=== PATIENT | female | born 1950 | race Caucasian/White ===

== ENCOUNTER 2017-02-11 12:43 | Emergency (ER) | payer MEDICARE, BC, OTHER ==
[~2017-02-11] VITALS: Ht 149.9 cm; Wt 75.0 kg
[~2017-02-11 12:43] MED LIST: ASPIRIN 81M81 MG/TA2 PO; CARAFATE 1GM1 G PO; COLESTID 1GM1 G PO; NEXIUM 40MG40 MG PO; PEPCID 20MG TAB20 MG PO; PHENERGAN 25 TA25 MG PO; SYNTHROID0.125 MG/T PO; TOPAMAX50 MG PO; TUMS500 MG PO; VITAMIN D2000 I1 PO; XANAX .25M0.25 MG/TA PO; XANAX 0.5MG0.5 MG PO; ZANTAC 150MG T150 MG PO; ZOLOFT 100MG100 MG PO
[2017-02-11 12:53] VITALS: TEMP 98.1
[2017-02-11] MEDS ORDERED: ASPIRIN 81M81 MG/TA2 PO (13:05)
[2017-02-11] MEDS ORDERED: WELLBUTRIN XL300 M1 PO (13:05)
[2017-02-11] MEDS ORDERED: ZYRTEC 10MG10 MG PO (13:05)
[2017-02-11] MEDS ORDERED: DESYREL 50MG50 MG PO (13:06)
[2017-02-11] MEDS ORDERED: VITAMIN D31000 IU PO (13:06)
[2017-02-11] MEDS ORDERED: IMODIUM 2MG CAPS2 MG PO (13:07)
[2017-02-11] MEDS ORDERED: CALCIUM CARB500 MG PO (13:07)
[2017-02-11] MEDS ORDERED: VITAMIN B COMPL1 SGL PO (13:07)
[2017-02-11] MEDS ORDERED: FLONASEALLERGY NS (13:07)
[2017-02-11] MEDS ORDERED: ATIVAN 0.50.5 MG/TAB PO (13:08)
[2017-02-11] MEDS ORDERED: PREVALITE4 GM/5.5 G PO (13:08)
[2017-02-11] MEDS ORDERED: ROBAXIN 50500 MG/TAB PO (13:09)
[2017-02-11] MEDS ORDERED: ULTRAM 50MG TAB50 MG PO (13:09)
[2017-02-11] MEDS ORDERED: ZOFRAN8 MG PO (13:09)
[2017-02-11 13:42] LABS: COLLECTION METHOD CLEAN CATCH
[2017-02-11 13:50] LABS: PH 6 (5-8); SQUAMOUS EPITHELIAL None Seen /hpf; URINE APPEARANCE Clear; URINE BACTERIA None Seen /hpf; URINE BILIRUBIN Negative (NEGATIVE); URINE BLOOD 1+ (NEGATIVE); URINE COLOR Straw; URINE GLUCOSE Negative (NEGATIVE); URINE KETONE Negative (NEGATIVE); URINE LEUKOCYTE ESTERASE Negative (NEGATIVE); URINE PROTEIN(semi-quant) Negative (NEGATIVE); URINE RBC None Seen /hpf; URINE UROBILINOGEN Negative (NEGATIVE); URINE WBC 0-2 /hpf
[2017-02-11 13:51] LABS: BASO % 0.6 % (0.0-2.0); EOS # 0.1 (0.0-0.7); GRAN # 4.4 (1.4-6.5); GRAN % 65.4 % (42.2-75.2); HEMATOCRIT 40.7 % (37.0-47.0); HEMOGLOBIN 13.5 g/dl (12.5-16.0); LYMPH # 1.7 (1.2-3.4); LYMPH % 25.6 % (20.0-51.0); MEAN CELL VOLUME 92 fl (80.0-100.0); MEAN CORPUSCULAR HEMOGLOBIN 30 pg (27.0-31.0); MEAN CORPUSCULAR HGB CONC 33 g/dl (33.0-37.0); MEAN PLATELET VOLUME 10.3 fl (7.4-10.4); MONO # 0.5 (0.1-0.6); MONO % 7.3 % (1.7-9.3); PLATELET COUNT 237 K/mm3 (130-400); RED BLOOD COUNT 4.45 M/mm3 (4.10-5.30); WHITE BLOOD COUNT 6.7 K/mm3 (4.8-10.8)
[2017-02-11 13:54] LABS: ADJUSTED CALCIUM 9.6 mg/dL (8.4-10.2); ALBUMIN 4.7 gm/dL (3.5-5.0); BILIRUBIN,TOTAL 0.5 mg/dL (0.0-1.0); CALCIUM 10.2 mg/dL (8.4-10.2); CREATININE, serum 1.06 mg/dL (0.52-1.25); POTASSIUM 4.1 mmol/L (3.4-5.0); TOTAL PROTEIN 7.6 gm/dL (6.4-8.2)
[2017-02-11 14:55] VITALS: BP 168/85; PULSE 66
== END 2017-02-11 14:56 | disposition home or self-care (01) ==
LOC: COL.ER 12:43
PROVIDERS: Physician Assistant Medical
DX: R10.13 Epigastric pain (principal); G43.909 Migraine, unspecified, not intractable, without status migrainosus; K21.9 Gastro-esophageal reflux disease without esophagitis; Z90.49 Acquired absence of other specified parts of digestive tract; Z90.710 Acquired absence of both cervix and uterus; Z98.51 Tubal ligation status; Z79.82 Long term (current) use of aspirin
CPT/HCPCS: J2405

== ENCOUNTER → 2017-06-06 | Outpatient (CLI) | payer MEDICARE, BC, OTHER ==
[~2017-06-06] MED LIST changes: +ATIVAN 0.50.5 MG/TAB PO; +CALCIUM CARB500 MG PO; +DESYREL 50MG50 MG PO; +FLONASEALLERGY NS; +IMODIUM 2MG CAPS2 MG PO; +PREVALITE4 GM/5.5 G PO; +ROBAXIN 50500 MG/TAB PO; +ULTRAM 50MG TAB50 MG PO; +VITAMIN B COMPL1 SGL PO; +VITAMIN D31000 IU PO; +WELLBUTRIN XL300 M1 PO; +ZOFRAN8 MG PO; +ZYRTEC 10MG10 MG PO
== END ==
LOC: COL.RAD 12:31
DX: N13.0 Hydronephrosis with ureteropelvic junction obstruction (principal); R94.4 Abnormal results of kidney function studies
CPT/HCPCS: A9562; J1940

== ENCOUNTER 2018-01-06 08:33 | Emergency (ER) | payer MEDICARE, BC, OTHER ==
[~2018-01-06] VITALS: Ht 149.9 cm; Wt 73.2 kg
[~2018-01-06 08:33] MED LIST changes: +GLUCOSAMINE 1000 PO; +LIDODERM 5% PATC1 EA TP; +MULTIPLE VITAMI1 CAP PO; +VOLTAREN GEL 1%1 TU TP; +[UNRECOGNIZED DRUG - OTHER] PO
[2018-01-06 08:39] VITALS: TEMP 97.9
[2018-01-06 09:49] LABS: BASO % 0.7 % (0.0-2.0); EOS # 0.1 (0.0-0.7); EOS % 0.9 % (0-4.0); GRAN # 3.7 (1.4-6.5); GRAN % 66.6 % (42.2-75.2); HEMATOCRIT 40.1 % (37.0-47.0); HEMOGLOBIN 13.1 g/dl (12.5-16.0); LYMPH # 1.2 (1.2-3.4); LYMPH % 22.5 % (20.0-51.0); MEAN CELL VOLUME 96 fl (80.0-100.0); MEAN CORPUSCULAR HEMOGLOBIN 31 pg (27.0-31.0); MEAN CORPUSCULAR HGB CONC 33 g/dl (33.0-37.0); MEAN PLATELET VOLUME 10.5 fl (7.4-10.4); MONO # 0.5 (0.1-0.6); MONO % 9.1 % (1.7-9.3); PLATELET COUNT 243 K/mm3 (130-400); RED BLOOD COUNT 4.19 M/mm3 (4.10-5.30); REDCELL DISTRIBUTION WIDTH-CV 12.3 % (11.5-14.5)
[2018-01-06 10:45] LABS: ALANINE AMINOTRANSFERASE 28 U/L (9-52); ALBUMIN 3.8 gm/dL (3.5-5.0); ALKALINE PHOSPHATASE 49 U/L (50-136); ANION GAP 8 mmol/L (7-16); AST,SGOT 22 U/L (15-37); BILIRUBIN,TOTAL 0.6 mg/dL (0.0-1.0); BLOOD UREA NITROGEN 16 mg/dL (7-17); C-REACTIVE PROTEIN 0.6 mg/dL (0.0-0.9); CALCIUM 9.4 mg/dL (8.4-10.2); CARBON DIOXIDE 29 mmol/L (22-30); CHLORIDE 101 mmol/L (98-107); CREATININE, serum 1.08 mg/dL (0.52-1.25); GLUCOSE 83 mg/dL (74-106); POTASSIUM 4.5 mmol/L (3.4-5.0); SODIUM 138 mmol/L (137-145); TOTAL PROTEIN 6.8 gm/dL (6.4-8.2)
[2018-01-06 10:56] LABS: TROPONIN-I < 0.012 ng/mL (0.000-0.034)
[2018-01-06 11:03] LABS: COLLECTION METHOD CLEAN CATCH
[2018-01-06 11:10] LABS: MUCOUS Present /lpf; PH 5 (5-8); SQUAMOUS EPITHELIAL None Seen /hpf; URINE APPEARANCE Clear; URINE BACTERIA None Seen /hpf; URINE BILIRUBIN Negative (NEGATIVE); URINE BLOOD Negative (NEGATIVE); URINE COLOR Yellow; URINE GLUCOSE Negative (NEGATIVE); URINE KETONE Trace (NEGATIVE); URINE LEUKOCYTE ESTERASE Negative (NEGATIVE); URINE NITRATE Negative (NEGATIVE); URINE PROTEIN(semi-quant) Negative (NEGATIVE); URINE RBC 0-2 /hpf; URINE UROBILINOGEN Negative (NEGATIVE); URINE WBC 0-2 /hpf
[2018-01-06] MEDS ORDERED: ANTIVERT 25MG25 MG PO (11:40)
[2018-01-06 12:09] VITALS: BP 119/69; PULSE 82
== END 2018-01-06 12:13 | disposition home or self-care (01) ==
LOC: COL.ER 08:33
PROVIDERS: Emergency Medicine
DX: G43.909 Migraine, unspecified, not intractable, without status migrainosus (principal); F32.9 Major depressive disorder, single episode, unspecified; R42 Dizziness and giddiness; Z90.89 Acquired absence of other organs; Z90.49 Acquired absence of other specified parts of digestive tract; Z90.710 Acquired absence of both cervix and uterus; Z79.82 Long term (current) use of aspirin; Z79.51 Long term (current) use of inhaled steroids
CPT/HCPCS: J1200; J1885; J2550; J2765; J7030

== ENCOUNTER 2018-04-09 12:30 | Emergency (ER) | payer MEDICARE, BC, OTHER ==
[~2018-04-09] VITALS: Ht 149.9 cm; Wt 75.5 kg
[~2018-04-09 12:30] MED LIST changes: +ANTIVERT 25MG25 MG PO
[2018-04-09 12:34] VITALS: TEMP 98
[2018-04-09 13:14] LABS: BASO % 0.5 % (0.0-2.0); EOS # 0.1 (0.0-0.7); EOS % 0.7 % (0-4.0); GRAN # 5.7 (1.4-6.5); GRAN % 70.1 % (42.2-75.2); HEMATOCRIT 41.9 % (37.0-47.0); HEMOGLOBIN 13.6 g/dl (12.5-16.0); LYMPH # 1.7 (1.2-3.4); LYMPH % 21.3 % (20.0-51.0); MEAN CELL VOLUME 93 fl (80.0-100.0); MEAN CORPUSCULAR HEMOGLOBIN 30 pg (27.0-31.0); MEAN CORPUSCULAR HGB CONC 33 g/dl (33.0-37.0); MEAN PLATELET VOLUME 10.1 fl (7.4-10.4); MONO # 0.6 (0.1-0.6); MONO % 7.2 % (1.7-9.3); PLATELET COUNT 276 K/mm3 (130-400); RED BLOOD COUNT 4.52 M/mm3 (4.10-5.30); REDCELL DISTRIBUTION WIDTH-CV 12.6 % (11.5-14.5)
[2018-04-09 13:30] LABS: ALANINE AMINOTRANSFERASE 22 U/L (9-52); ALBUMIN 4.1 gm/dL (3.5-5.0); ALKALINE PHOSPHATASE 55 U/L (50-136); ANION GAP 7 mmol/L (7-16); AST,SGOT 28 U/L (15-37); BILIRUBIN,TOTAL 0.3 mg/dL (0.0-1.0); BLOOD UREA NITROGEN 24 mg/dL (7-17); CALCIUM 10.1 mg/dL (8.4-10.2); CARBON DIOXIDE 23 mmol/L (22-30); CHLORIDE 105 mmol/L (98-107); CREATININE, serum 1.15 mg/dL (0.52-1.25); GLUCOSE 97 mg/dL (74-106); LIPASE 507 U/L (23-300); POTASSIUM 4.9 mmol/L (3.4-5.0); SODIUM 135 mmol/L (137-145); TOTAL PROTEIN 7.3 gm/dL (6.4-8.2)
[2018-04-09 13:31] LABS: C-REACTIVE PROTEIN < 0.5 mg/dL (0.0-0.9)
[2018-04-09 16:58] LABS: COLLECTION METHOD CLEAN CATCH
[2018-04-09 17:12] LABS: MUCOUS Present /lpf; PH 5 (5-8); SQUAMOUS EPITHELIAL None Seen /hpf; URINE APPEARANCE Clear; URINE BACTERIA None Seen /hpf; URINE BILIRUBIN Negative (NEGATIVE); URINE BLOOD Negative (NEGATIVE); URINE COLOR Yellow; URINE GLUCOSE Negative (NEGATIVE); URINE KETONE Negative (NEGATIVE); URINE LEUKOCYTE ESTERASE 1+ (NEGATIVE); URINE NITRATE Negative (NEGATIVE); URINE PROTEIN(semi-quant) Negative (NEGATIVE); URINE UROBILINOGEN Negative (NEGATIVE)
[2018-04-09] MEDS ORDERED: PHENERGAN 25 TA25 MG PO (17:14)
[2018-04-09 17:26] VITALS: BP 148/83; PULSE 86
== END 2018-04-09 17:29 | disposition home or self-care (01) ==
LOC: COL.ER 12:30
PROVIDERS: Nurse Practitioner
DX: K52.9 Noninfective gastroenteritis and colitis, unspecified (principal); F32.9 Major depressive disorder, single episode, unspecified; Z79.82 Long term (current) use of aspirin; G43.909 Migraine, unspecified, not intractable, without status migrainosus; Z90.89 Acquired absence of other organs; Z90.710 Acquired absence of both cervix and uterus; Z98.51 Tubal ligation status
CPT/HCPCS: J1170; J2405; J2550; J7030; Q9967

== ENCOUNTER 2018-12-13 09:48 | Emergency (ER) | payer MEDICARE, BC, OTHER ==
[~2018-12-13] VITALS: Ht 149.9 cm; Wt 77.3 kg
[2018-12-13 09:54] VITALS: TEMP 99.3
[2018-12-13] MEDS ORDERED: NIRAVAM0.5 MG PO (10:13)
[2018-12-13 11:52] VITALS: BP 143/76; PULSE 91
== END 2018-12-13 11:53 | disposition home or self-care (01) ==
LOC: COL.ER 09:48
DX: G43.909 Migraine, unspecified, not intractable, without status migrainosus (principal); F32.9 Major depressive disorder, single episode, unspecified; N18.3 Chronic kidney disease, stage 3 (moderate); Z79.82 Long term (current) use of aspirin; Z79.51 Long term (current) use of inhaled steroids; Z90.89 Acquired absence of other organs
CPT/HCPCS: J1200; J2765; J7030

== ENCOUNTER 2018-12-17 12:31 | Emergency (ER) | payer MEDICARE, BC, OTHER ==
[~2018-12-17] VITALS: Ht 149.9 cm; Wt 79.5 kg
[~2018-12-17 12:31] MED LIST changes: +NIRAVAM0.5 MG PO
[2018-12-17 12:34] VITALS: TEMP 98.2
[2018-12-17 13:06] LABS: BASO % 0.4 % (0.0-2.0); EOS # 0.1 (0.0-0.7); EOS % 0.5 % (0-4.0); GRAN # 7.3 (1.4-6.5); GRAN % 74.7 % (42.2-75.2); HEMATOCRIT 42.1 % (37.0-47.0); HEMOGLOBIN 14.1 g/dl (12.5-16.0); LYMPH # 1.7 (1.2-3.4); LYMPH % 17.5 % (20.0-51.0); MEAN CELL VOLUME 93 fl (80.0-100.0); MEAN CORPUSCULAR HEMOGLOBIN 31 pg (27.0-31.0); MEAN CORPUSCULAR HGB CONC 34 g/dl (33.0-37.0); MEAN PLATELET VOLUME 9.5 fl (7.4-10.4); MONO # 0.6 (0.1-0.6); MONO % 6.6 % (1.7-9.3); PLATELET COUNT 307 K/mm3 (130-400); RED BLOOD COUNT 4.53 M/mm3 (4.10-5.30); REDCELL DISTRIBUTION WIDTH-CV 13.2 % (11.5-14.5)
[2018-12-17 13:09] LABS: INR 0.9 (0.8-3.0)
[2018-12-17 13:13] LABS: ALANINE AMINOTRANSFERASE 13 U/L (9-52); ALBUMIN 4.4 gm/dL (3.5-5.0); ALKALINE PHOSPHATASE 62 U/L (50-136); ANION GAP 8 mmol/L (7-16); AST,SGOT 29 U/L (15-37); BILIRUBIN,TOTAL 0.4 mg/dL (0.0-1.0); BLOOD UREA NITROGEN 21 mg/dL (7-17); CALCIUM 10.8 mg/dL (8.4-10.2); CARBON DIOXIDE 26 mmol/L (22-30); CHLORIDE 103 mmol/L (98-107); CREATININE, serum 1.32 (0.52-1.25); GLUCOSE 87 mg/dL (74-106); LIPASE 63 U/L (23-300); POTASSIUM 4.4 mmol/L (3.4-5.0); SODIUM 137 mmol/L (137-145); TOTAL PROTEIN 7.4 gm/dL (6.4-8.2)
[2018-12-17 13:26] LABS: TROPONIN-I < 0.012 ng/mL (0.000-0.035)
[2018-12-17] MEDS ORDERED: PROTONIX 40MG T40 MG PO (14:59)
[2018-12-17 16:15] VITALS: BP 115/71; PULSE 81
== END 2018-12-17 16:30 | disposition home or self-care (01) ==
LOC: COL.ER 12:31
PROVIDERS: Emergency Medicine
DX: R07.89 Other chest pain (principal); K21.9 Gastro-esophageal reflux disease without esophagitis
CPT/HCPCS: C9113; J2270; J7030; Q9967

== ENCOUNTER 2023-12-15 16:03 | Emergency (ER) | payer MEDICARE, BC, OTHER ==
[~2023-12-15] VITALS: Ht 152.4 cm; Wt 89.1 kg
[~2023-12-15 16:03] MED LIST changes: +PROTONIX 40MG T40 MG PO
[2023-12-15 16:17] VITALS: BP 131/70; TEMP 98.7
[2023-12-15 18:05] VITALS: PULSE 90
== END 2023-12-15 18:05 | disposition home or self-care (01) ==
LOC: COL.ER 16:03
DX: S99.911A Unspecified injury of right ankle, initial encounter (principal); X50.1XXA Overexertion from prolonged static or awkward postures, initial encounter; Y93.01 Activity, walking, marching and hiking